=== PATIENT | male | born 1965 | race Caucasian/White ===

== ENCOUNTER 2016-09-09 19:35 | Observation (INO) | payer MEDICARE ==
[~2016-09-09] VITALS: Ht 180.3 cm; Wt 95.8 kg
[2016-09-09 20:40] LABS: HEMOGLOBIN 16.3 g/dL (13.7-18.0)
[2016-09-09 20:46] LABS: BLOOD UREA NITROGEN 11 mg/dL (7-18)
[2016-09-09 20:48] LABS: ACETAMINOPHEN < 2 mcg/mL (10-30)
[2016-09-09] MEDS ORDERED: ONDANSETRON ODT 4 MG PO ONE (21:00)
[2016-09-09] MEDS ORDERED: ONDANSETRON ODT 4 MG ONE (21:31)
[2016-09-09 23:38] LABS: DAU SCREEN DISCLAIMER
[2016-09-10] MEDS ORDERED: ONDANSETRON ODT 4 MG PO PRN (02:30)
[2016-09-10] MEDS ORDERED: NICOTINE 14MG/24 HR PATCH.TD24 TD SCH (02:30)
[2016-09-10] MEDS ORDERED: LORazepam 1MG TABLET ONE (07:43)
[2016-09-10] MEDS: LORazepam 1MG TABLET PO PRN ×2 (07:46→19:58)
[2016-09-10] MEDS: CYANOCOBALAMIN 1,000 MCG TABLET PO SCH (09:00)
[2016-09-10] MEDS: FOLIC ACID 1 MG TABLET PO SCH (09:00)
[2016-09-10] MEDS: MULTIVITAMIN 1 TABLET PO SCH (09:00)
[2016-09-10] MEDS: THIAMINE 100MG TABLET PO SCH (09:00)
[2016-09-10] MEDS ORDERED: ACETAMINOPHEN 325 MG TABLET ONE (14:24)
[2016-09-10] MEDS: ACETAMINOPHEN 325 MG TABLET PO PRN (14:25)
[2016-09-10 17:35] VITALS: BP 112/66
[2016-09-10 19:46] VITALS: BP 99/66
[2016-09-11] MEDS: CYANOCOBALAMIN 1,000 MCG TABLET PO SCH (08:27)
[2016-09-11] MEDS: FOLIC ACID 1 MG TABLET PO SCH (08:27)
[2016-09-11] MEDS: MULTIVITAMIN 1 TABLET PO SCH (08:27)
[2016-09-11] MEDS: THIAMINE 100MG TABLET PO SCH (08:27)
[2016-09-11] MEDS ORDERED: SUMATRIPTAN 50 MG TABLET PO PRN (08:30)
[2016-09-11] MEDS: LORazepam 1MG TABLET PO PRN ×2 (08:31→15:09)
[2016-09-11 08:46] VITALS: BP 120/81
[2016-09-11] MEDS ORDERED: MULT1TAB60 PO (13:08)
[2016-09-11] MEDS ORDERED: SUMA50TA4 PO (13:08)
[2016-09-11] MEDS ORDERED: CYAN10005 PO (13:08)
[2016-09-11] MEDS ORDERED: FOLI-17 PO (13:08)
[2016-09-11] MEDS ORDERED: Thiamine Hcl PO (13:08)
[2016-09-11] MEDS: ACETAMINOPHEN 325 MG TABLET PO PRN (15:09)
== END 2016-09-11 15:45 ==
LOC: ED 09-10 01:43 → SUATTDRO 09-10 01:52 → EDIP 09-10 02:02 → 3E 09-10 17:38
DX: R45.851 Suicidal ideations (principal); F31.9 Bipolar disorder, unspecified; G43.909 Migraine, unspecified, not intractable, without status migrainosus; L40.9 Psoriasis, unspecified; F90.9 Attention-deficit hyperactivity disorder, unspecified type; F10.229 Alcohol dependence with intoxication, unspecified; F17.200 Nicotine dependence, unspecified, uncomplicated
CPT/HCPCS: 36415; 80048; 80164; 80307; 80329; 82040; 85025; 99285; G0378; Q0162; G0480

== ENCOUNTER 2016-09-18 18:01 | Observation (INO) | payer MEDICARE ==
[~2016-09-18] VITALS: Ht 180.3 cm; Wt 95.5 kg
[2016-09-18] MEDS: NICOTINE 14MG/24 HR PATCH.TD24 TD SCH (01:30)
[~2016-09-18 18:01] MED LIST: CYAN10005 PO; FOLI-17 PO; MULT1TAB60 PO; SUMA50TA4 PO; Thiamine Hcl PO
[2016-09-18 19:12] LABS: BLOOD UREA NITROGEN 7 mg/dL (7-18)
[2016-09-18 19:17] LABS: ACETAMINOPHEN < 2 mcg/mL (10-30); ASPARTATE AMINO TRANSFERASE 19 U/L (15-37)
[2016-09-18 19:45] LABS: DAU SCREEN DISCLAIMER
[2016-09-18] MEDS ORDERED: DIVA500T2 PO (21:28)
[2016-09-18] MEDS ORDERED: AMPH30TA2 PO (21:28)
[2016-09-18] MEDS ORDERED: CLON0.1T PO (21:28)
[2016-09-18] MEDS ORDERED: DIAZ5TAB PO (21:28)
[2016-09-18] MEDS ORDERED: DOCUSATE 100 MG CAPSULE PO PRN (23:30)
[2016-09-18] MEDS ORDERED: ONDANSETRON ODT 4 MG PO PRN (23:30)
[2016-09-18] MEDS ORDERED: BISACODYL 10 MG SUPP PR PRN (23:30)
[2016-09-18] MEDS ORDERED: POLYETHYLENE GLYCOL 17 GM PACKET PO PRN (23:30)
[2016-09-18] MEDS ORDERED: ACETAMINOPHEN 325 MG TABLET PO PRN (23:30)
[2016-09-19 01:02] VITALS: BP 94/60
[2016-09-19 07:53] VITALS: BP 111/83
[2016-09-19] MEDS: DIVALPROEX 500 MG TABLET.DR PO SCH ×2 (08:32→20:58)
[2016-09-19] MEDS ORDERED: LORazepam 1MG TABLET PO ONE (13:30)
[2016-09-19] MEDS: LORazepam 1MG TABLET PO PRN (19:26)
[2016-09-19] MEDS: NICOTINE 14MG/24 HR PATCH.TD24 TD SCH (20:02)
[2016-09-20 08:00] VITALS: BP 117/83
[2016-09-20] MEDS: DIVALPROEX 500 MG TABLET.DR PO SCH (08:45)
[2016-09-20] MEDS: LORazepam 1MG TABLET PO PRN ×2 (08:45→15:29)
[2016-09-20] MEDS ORDERED: ENOXAPARIN 40 MG/0.4 ML SQ SCH (15:30)
== END 2016-09-20 16:51 ==
LOC: ED 19:45 → EDIP 23:08 → 3E 09-19 00:53
PROVIDERS: ADMIT Internal Medicine; ATTEND Internal Medicine
DX: R45.851 Suicidal ideations (principal); F31.9 Bipolar disorder, unspecified; F41.9 Anxiety disorder, unspecified; F90.9 Attention-deficit hyperactivity disorder, unspecified type; L40.9 Psoriasis, unspecified; F10.121 Alcohol abuse with intoxication delirium; F19.959 Other psychoactive substance use, unspecified with psychoactive substance-induced psychotic disorder, unspecified; Z72.0 Tobacco use
CPT/HCPCS: 36415; 80053; 80307; 80329; 81003; 85025; 99285; G0378; G0480

== ENCOUNTER 2016-11-28 10:50 | Emergency (ER) | payer MEDICARE, MEDICAID ==
[~2016-11-28] VITALS: Ht 180.3 cm; Wt 89.1 kg
[~2016-11-28 10:50] MED LIST changes: +AMPH30TA2 PO; +CLON0.1T PO; +DIAZ5TAB PO; +DIVA500T2 PO; +LISD40CA PO
[2016-11-28 11:20] VITALS: BP 108/67
[2016-11-28] MEDS ORDERED: ZIPRASIDONE 20 MG INJ IM ONE ×2 (11:30→11:37)
[2016-11-28] MEDS ORDERED: ONDANSETRON ODT 4 MG PO ONE (11:30)
[2016-11-28] MEDS ORDERED: ONDANSETRON ODT 4 MG ONE (11:37)
[2016-11-28 12:18] LABS: ASPARTATE AMINO TRANSFERASE 36 U/L (15-37); BLOOD UREA NITROGEN 14 mg/dL (7-18)
[2016-11-28 12:31] LABS: ACETAMINOPHEN < 2 mcg/mL (10-30)
[2016-11-28 13:07] LABS: DAU SCREEN DISCLAIMER
[2016-11-28] MEDS ORDERED: VALPROIC ACID 250 MG CAPSULE PO ONE (13:30)
[2016-11-28] MEDS ORDERED: LORazepam 1MG TABLET ONE (13:43)
[2016-11-28] MEDS ORDERED: LORazepam 1MG TABLET PO ONE (14:00)
== END 2016-11-28 14:05 | disposition home or self-care (01) ==
LOC: ED 13:06
DX: G40.909 Epilepsy, unspecified, not intractable, without status epilepticus (principal); F10.20 Alcohol dependence, uncomplicated; F17.200 Nicotine dependence, unspecified, uncomplicated; Z88.8 Allergy status to other drugs, medicaments and biological substances; Z88.0 Allergy status to penicillin
CPT/HCPCS: 36415; 80053; 80164; 80307; 80329; 85025; 96372; 99285; J3486; Q0162; G0480

== ENCOUNTER 2016-12-04 17:00 | Observation (INO) | payer MEDICARE, MEDICAID ==
[~2016-12-04] VITALS: Ht 180.3 cm; Wt 89.5 kg
[2016-12-04] MEDS ORDERED: LORazepam 1MG TABLET PO ONE (17:30)
[2016-12-04] MEDS ORDERED: LORazepam 1MG TABLET ONE (17:33)
[2016-12-04 17:43] LABS: BLOOD UREA NITROGEN 13 mg/dL (7-18)
[2016-12-04 17:52] LABS: ACETAMINOPHEN < 2 mcg/mL (10-30)
[2016-12-04 18:28] LABS: DAU SCREEN DISCLAIMER
[2016-12-04] MEDS ORDERED: DOCUSATE 100 MG CAPSULE PO PRN (21:30)
[2016-12-04] MEDS ORDERED: NICOTINE 14MG/24 HR PATCH.TD24 TD SCH (21:30)
[2016-12-04] MEDS ORDERED: ONDANSETRON ODT 4 MG PO PRN (21:30)
[2016-12-04] MEDS ORDERED: TEMAZEPAM 15 MG CAPSULE PO PRN (21:30)
[2016-12-04] MEDS ORDERED: ACETAMINOPHEN 325 MG TABLET PO PRN (21:30)
[2016-12-04 22:41] VITALS: BP 126/84
[2016-12-04] MEDS: DIVALPROEX 500 MG TABLET.DR PO SCH (23:07)
[2016-12-05] MEDS: LORazepam 1MG TABLET PO PRN ×2 (02:35→09:38)
[2016-12-05 08:00] VITALS: BP 98/60
[2016-12-05] MEDS: DIVALPROEX 500 MG TABLET.DR PO SCH (08:54)
== END 2016-12-05 16:57 ==
LOC: ED 17:15 → EDIP 20:32 → INTOOBSV 20:32 → 3E 21:43
PROVIDERS: ADMIT Internal Medicine; ATTEND Internal Medicine
DX: R45.851 Suicidal ideations (principal); F31.9 Bipolar disorder, unspecified; F41.9 Anxiety disorder, unspecified; F10.120 Alcohol abuse with intoxication, uncomplicated; Z72.0 Tobacco use; Z59.0 Homelessness
CPT/HCPCS: 36415; 80048; 80164; 80307; 80329; 82040; 85025; 99285; G0378; G0480

== ENCOUNTER 2016-12-11 20:24 | Emergency (ER) | payer MEDICARE, MEDICAID ==
[~2016-12-11] VITALS: Ht 180.3 cm; Wt 93.3 kg
[2016-12-11 20:34] VITALS: BP 113/77
[2016-12-11 21:10] LABS: DAU SCREEN DISCLAIMER
[2016-12-11 22:10] LABS: BLOOD UREA NITROGEN 16 mg/dL (7-18)
[2016-12-11 22:15] LABS: ACETAMINOPHEN < 2 mcg/mL (10-30)
== END 2016-12-12 02:19 | disposition home or self-care (01) ==
LOC: ED 23:59
DX: F10.229 Alcohol dependence with intoxication, unspecified (principal); F15.20 Other stimulant dependence, uncomplicated; Y90.9 Presence of alcohol in blood, level not specified; F31.9 Bipolar disorder, unspecified; G43.909 Migraine, unspecified, not intractable, without status migrainosus
CPT/HCPCS: 36415; 80048; 80307; 80329; 82040; 85025; 99284; G0480

== ENCOUNTER 2017-03-27 18:38 | Inpatient (IN) | payer MEDICARE ==
[~2017-03-27] VITALS: Ht 180.3 cm; Wt 91.4 kg
[~2017-03-27 18:38] MED LIST changes: -LISD40CA PO; +LISD40CA3 PO
[2017-03-27] MEDS ORDERED: CHARCOAL/SORBITOL 50 GM/240 ML ONE (18:58)
[2017-03-27] MEDS ORDERED: SODIUM CHLORIDE FLUSH 10ML SYR IVF ONE (19:00)
[2017-03-27 19:19] LABS: HEMATOCRIT 42.6 % (39.2-51.8); HEMOGLOBIN 14.5 g/dL (13.7-18.0); WHITE BLOOD COUNT 5.3 x10^3/uL (3.4-10)
[2017-03-27 19:28] LABS: ASPARTATE AMINO TRANSFERASE 14 U/L (15-37); BLOOD UREA NITROGEN 15 mg/dL (7-18)
[2017-03-27] MEDS ORDERED: SODIUM CHLORIDE 0.9% 1,000ML IVBOLUS ONE (19:30)
[2017-03-27] MEDS ORDERED: CHARCOAL/SORBITOL 50 GM/240 ML PO ONE (19:30)
[2017-03-27 19:35] LABS: VALPROIC ACID 21.1 mcg/mL (50.0-100.0)
[2017-03-27 19:40] LABS: ACETAMINOPHEN < 2 mcg/mL (10-30)
[2017-03-27] MEDS ORDERED: SODIUM CHLORIDE 0.9% 1,000 ML IV ONE (20:35)
[2017-03-27] MEDS ORDERED: ONDANSETRON 2MG/ML, 2ML IVPush PRN ×2 (21:00→22:00)
[2017-03-27] MEDS: SODIUM CHLORIDE 0.9% 1,000 ML IV SCH (21:47)
[2017-03-27] MEDS ORDERED: hydrALAzine 20 MG/ML, 1ML IVPush PRN (22:00)
[2017-03-27] MEDS: ENOXAPARIN 40 MG/0.4 ML SQ SCH (23:56)
[2017-03-27] MEDS: THIAMINE 100 MG, MVI ADULT 10 ML, FOLIC ACID 1 MG in D5%-0.9% NACL 1,000 ML IV SCH (23:56)
[2017-03-28] MEDS: LORazepam 2 MG/ML, 1ML IVPush PRN ×2 (01:23→16:06)
[2017-03-28] MEDS: SODIUM CHLORIDE 0.9% 1,000 ML IV SCH ×5 (02:47→22:39)
[2017-03-28 04:25] LABS: HEMATOCRIT 39.5 % (39.2-51.8); HEMOGLOBIN 13.4 g/dL (13.7-18.0); WHITE BLOOD COUNT 6.7 x10^3/uL (3.4-10)
[2017-03-28 04:37] LABS: BLOOD UREA NITROGEN 8 mg/dL (7-18)
[2017-03-28 04:40] LABS: ASPARTATE AMINO TRANSFERASE 8 U/L (15-37)
[2017-03-28 04:43] LABS: VALPROIC ACID 129.4 mcg/mL (50.0-100.0)
[2017-03-28] MEDS ORDERED: MAGNESIUM SULFATE PMX 4GM/100M 100 ML IVPB ONE (09:00)
[2017-03-28 14:34] VITALS: BP 98/58
[2017-03-28 19:33] VITALS: BP 112/73
[2017-03-29] MEDS: ENOXAPARIN 40 MG/0.4 ML SQ SCH (00:12)
[2017-03-29 00:49] VITALS: BP 109/75
[2017-03-29] MEDS: THIAMINE 100 MG, MVI ADULT 10 ML, FOLIC ACID 1 MG in D5%-0.9% NACL 1,000 ML IV SCH (00:57)
[2017-03-29 05:27] LABS: HEMATOCRIT 39.6 % (39.2-51.8); HEMOGLOBIN 13.7 g/dL (13.7-18.0); WHITE BLOOD COUNT 5.3 x10^3/uL (3.4-10)
[2017-03-29 05:37] LABS: BLOOD UREA NITROGEN 7 mg/dL (7-18)
[2017-03-29 05:41] LABS: ASPARTATE AMINO TRANSFERASE 12 U/L (15-37)
[2017-03-29 08:00] VITALS: BP 142/92
[2017-03-29] MEDS: SODIUM CHLORIDE 0.9% 1,000 ML IV SCH (08:00)
[2017-03-29] MEDS: LORazepam 2 MG/ML, 1ML IVPush PRN ×2 (08:28→14:35)
[2017-03-29] MEDS ORDERED: NICOTINE 14MG/24 HR PATCH.TD24 TD ONE (18:00)
[2017-03-30] MEDS: ENOXAPARIN 40 MG/0.4 ML SQ SCH
[2017-03-30 01:06] VITALS: BP 129/87
[2017-03-30] MEDS: IBUPROFEN 200 MG TABLET PO PRN ×2 (01:31→21:19)
[2017-03-30] MEDS: THIAMINE 100MG TABLET PO SCH (08:51)
[2017-03-30] MEDS: FOLIC ACID 1 MG TABLET PO SCH (08:51)
[2017-03-30] MEDS: MULTIVITAMIN 1 TABLET PO SCH (08:51)
[2017-03-30 10:01] LABS: ASPARTATE AMINO TRANSFERASE 11 U/L (15-37); BLOOD UREA NITROGEN 9 mg/dL (7-18)
[2017-03-30 10:19] LABS: VALPROIC ACID 47.9 mcg/mL (50.0-100.0)
[2017-03-30] MEDS ORDERED: ZIPRASIDONE 20MG CAPSULE PO PRN (13:30)
[2017-03-30] MEDS ORDERED: ZIPRASIDONE 20 MG INJ IM PRN (13:30)
[2017-03-30 15:26] VITALS: BP 112/74
[2017-03-30 17:42] VITALS: BP 138/93
[2017-03-30 19:36] VITALS: BP 106/66
[2017-03-30] MEDS: DIVALPROEX 500 MG TABLET.DR PO SCH (21:19)
[2017-03-31] MEDS: FOLIC ACID 1 MG TABLET PO SCH (08:22)
[2017-03-31] MEDS: DIVALPROEX 500 MG TABLET.DR PO SCH (08:22)
[2017-03-31] MEDS: MULTIVITAMIN 1 TABLET PO SCH (08:22)
[2017-03-31] MEDS: THIAMINE 100MG TABLET PO SCH (08:22)
[2017-03-31 08:23] VITALS: BP 102/60
[2017-03-31] MEDS: ENOXAPARIN 40 MG/0.4 ML SQ SCH ×2 (08:23)
[2017-03-31] MEDS: IBUPROFEN 200 MG TABLET PO PRN ×2 (19:22→19:27)
[2017-03-31] MEDS ORDERED: QUETIAPINE 100MG TABLET PO ONE (21:00)
[2017-04-01] MEDS: THIAMINE 100MG TABLET PO SCH (08:30)
[2017-04-01] MEDS: FOLIC ACID 1 MG TABLET PO SCH (08:30)
[2017-04-01] MEDS: MULTIVITAMIN 1 TABLET PO SCH (08:30)
[2017-04-01 08:50] VITALS: BP 110/74
[2017-04-01] MEDS ORDERED: DIVALPROEX 500 MG TAB.ER.24H ONE (19:17)
[2017-04-01] MEDS: IBUPROFEN 200 MG TABLET PO PRN (20:51)
[2017-04-01] MEDS: MINERA CRM, 60GM TP SCH (21:00)
[2017-04-01] MEDS ORDERED: DIVALPROEX 500 MG TAB.ER.24H PO SCH (21:00)
[2017-04-02] MEDS: ENOXAPARIN 40 MG/0.4 ML SQ SCH
[2017-04-02] MEDS: THIAMINE 100MG TABLET PO SCH (09:00)
[2017-04-02] MEDS: MINERA CRM, 60GM TP SCH (09:00)
[2017-04-02] MEDS: MULTIVITAMIN 1 TABLET PO SCH (09:00)
[2017-04-02] MEDS: FOLIC ACID 1 MG TABLET PO SCH (09:00)
[2017-04-02] MEDS ORDERED: DIVA500T4 PO (16:19)
== END 2017-04-02 16:44 | DRG 917 ==
LOC: ED 20:32 → EDIP 20:35 → CCU 23:10 → 5SO 03-28 14:47 → 3E 03-30 16:33
PROVIDERS: ADMIT Hospitalist; ATTEND Family Medicine
DX: T42.6X2A Poisoning by other antiepileptic and sedative-hypnotic drugs, intentional self-harm, initial encounter (principal); E43 Unspecified severe protein-calorie malnutrition; G93.40 Encephalopathy, unspecified; F31.30 Bipolar disorder, current episode depressed, mild or moderate severity, unspecified; F10.229 Alcohol dependence with intoxication, unspecified; F15.10 Other stimulant abuse, uncomplicated; Y90.0 Blood alcohol level of less than 20 mg/100 ml; F41.1 Generalized anxiety disorder; F63.0 Pathological gambling; Y92.89 Other specified places as the place of occurrence of the external cause; Z76.5 Malingerer [conscious simulation]; Z87.891 Personal history of nicotine dependence; Z91.5 Personal history of self-harm; Z68.28 Body mass index [BMI] 28.0-28.9, adult; Z88.0 Allergy status to penicillin; Z88.8 Allergy status to other drugs, medicaments and biological substances
CPT/HCPCS: 36415; 71010; 80053; 80164; 80307; 80329; 83735; 84100; 85025; 87081; 93005; 96360; 96361; J1650; J3411; J7042; G0479; G0480; J2060; J3475; J7030